=== PATIENT | female | born 1965 | race Caucasian/White ===

== ENCOUNTER 2016-11-09 19:16 | Emergency (ER) | payer OTHER ==
[2016-11-09] MEDS ORDERED: RIFAMPIN 150 MG CAPSULE PO ONE (20:30)
[2016-11-09] MEDS ORDERED: VANCOMYCIN HCL 1 G in SODIUM CHLORIDE 0.9% 230 ML IV ONE (21:30)
[2016-11-09 21:33] LABS: ABSOLUTE NEUTROPHIL COUNT 11.7 K/mm3 (1.8-7.7); BASO # 0.1 K/mm3 (0.0-0.2); BASO % 0.7 % (0.2-1.0); EOS # 0.2 (0.0-0.5); EOS % 1.2 % (0.9-2.9); HEMOGLOBIN 11.6 gm/l (12.0-16.0); IMM NEUT # 0.2 K/mm3 (0-0.2); IMM NEUT% 1.2 % (0-1); LYMPH # 2.5 (1.0-4.8); MEAN CELL VOLUME 77.9 fl (81.0-99.0); MEAN CORPUSCULAR HEMOGLOBIN 23.8 pg (27.0-31.0); MEAN CORPUSCULAR HGB CONC 30.5 g/dl (33.0-37.0); MEAN PLATELET VOLUME 11.3 fl (7.4-10.4); MONO # 0.8 (0.0-0.8); MONO % 5.1 % (4-12); NEUT % 75.8 % (43-75); PLATELET COUNT 214 K/mm3 (130-400); RED CELL DISTRIBUTION WIDTH 15.3 % (11.5-14.5)
[2016-11-09 21:52] LABS: ALBUMIN 3.9 gm/dL (3.5-5.7)
[2016-11-09] MEDS ORDERED: OXYCODONE HCL 5 MG TABLET ONE (22:10)
[2016-11-09] MEDS ORDERED: INSULIN REGULAR HUMAN (DOSE) 100 UNITS/1 ML ONE ×2 (22:10→23:31)
[2016-11-09] MEDS ORDERED: VANCOMYCIN HCL 500 MG in NS 0.9% (MINI-BAG PLUS) 100 ML IV ONE (22:30)
== END 2016-11-10 00:09 | disposition home or self-care (01) ==
LOC: ED 19:16
DX: L02.213 Cutaneous abscess of chest wall (principal); E11.9 Type 2 diabetes mellitus without complications; J43.9 Emphysema, unspecified; Z79.4 Long term (current) use of insulin; Z86.14 Personal history of Methicillin resistant Staphylococcus aureus infection
CPT/HCPCS: 85025; 87070; 80053; 87186; 85651; 96375; 99284; 10060 ×2; 96374; 82962; 99283; A9270 ×2; J3370 ×2; J7050; J1815 ×2